=== PATIENT | male | born 1970 | race Two or more races ===

== ENCOUNTER 2020-11-15 14:46 | Emergency (ER) | payer OTHER ==
[~2020-11-15] VITALS: Ht 177.8 cm; Wt 86.2 kg
[2020-11-15] MEDS ORDERED: RYTHMOL SR325 MG (15:05)
== END 2020-11-15 20:45 | disposition home or self-care (01) ==
LOC: ER 14:46 → CPU-OBS 15:46 → ER 20:45
DX: R07.89 Other chest pain (principal); R00.2 Palpitations
CPT/HCPCS: G0378; G0379; 93005